=== PATIENT | female | born 1995 | race Hispanic/Latino ===

== ENCOUNTER 2018-09-22 17:45 | Day surgery (SDC) | payer OTHER ==
[2018-09-22 18:18] VITALS: BP 125/81; TEMP 98.2; BMI 26.2
[2018-09-22] MEDS ORDERED: Butorphanol Tartrate 1 MG/ML VIAL SLOW IVP PRN (18:47)
[2018-09-22] MEDS ORDERED: Butorphanol Tartrate 1 MG/ML VIAL ONE (18:48)
[2018-09-22] MEDS ORDERED: Lactated Ringer's 1,000 ML IV SCH ×2 (19:00)
[2018-09-22 19:53] LABS: Bilirubin Negative (Negative); Blood, Urine Negative (Negative); Clarity CLEAR (Clear); Glucose, Urine (Dipstick) Negative (Negative); Leukocyte Trace (Negative); Nitrite Negative (Negative); Protein, Urine (Dipstick) Negative (Neg-Trace); Specific Gravity, Urine 1.004 (1.002-1.036); Urobilinogen 0.2 mg/dL (0.2-1.0)
[2018-09-22 19:56] LABS: Bacteria/HPF None Seen HPF (None Seen); Hyaline Casts/LPF 0-3 HYALINE CAST LPF (0-3 Hyaline); RBC/HPF 0-3 HPF (0-3); Squamous Epithelial 0-3 HPF (0-3); WBC/HPF 0-3 HPF (0-3)
--- NOTE | 2018-09-22 21:03 | PDOC.EVN ---
Event Note - Event Note Event Note: 22 yo G3P@ @ 33.2wks here for contractions, now s/p 3L LR and now with resolution of contractions for 30 minutes. UA negative for infection. Will dc and recommend follow-up on Tuesday with Dr. Alvarado. Counseled on adequate fluid intake and return/labor precautions. Suspect dehydration as the etiology. -Nola Montes MD, PGY-2 Addendum - Attending - Attending Attestation Date/Time: 09/22/18 4512 I personally evaluated the patient and discussed the management with Dr. Montes. I agree with the Assessment and Plan documented above.
--- NOTE | 2018-09-23 00:24 | SS ---
DATE OF ADMISSION: 09/22/2018 DATE OF DISCHARGE: 09/22/2018 LABOR AND DELIVERY TRIAGE NOTE REGULAR PROVIDER: Lee Alvarado MD EVALUATING PHYSICIAN: Jf Dominguez MD CHIEF COMPLAINT: Uterine contractions over the last 2 days. HISTORY OF PRESENT ILLNESS: Ms. Arora is a 22-year-old white G3, P2 with an estimated date of confinement of 11/08/2018, who presents complaining of intermittent uterine contractions since last Tuesday. She states it became stronger today. She was seen in the emergency room of [facility] and transported herself here by private vehicle. She denies ruptured membranes or vaginal bleeding. Her care has been with Dr. Alvarado and she states it has been complicated by polyhydramnios. PAST OBSTETRICAL HISTORY: Two vaginal deliveries at 37 weeks, all reportedly uncomplicated. PAST MEDICAL HISTORY: None. PAST SURGICAL HISTORY: Tonsillectomy. CURRENT MEDICATIONS: vitamins. ALLERGIES: NO KNOWN ALLERGIES. SOCIAL HISTORY: Denies tobacco, alcohol, or drug use. FAMILY HISTORY: Unremarkable. REVIEW OF SYSTEMS: She denies nausea, vomiting, fever, chills, ruptured membranes, or heavy vaginal bleeding. PHYSICAL EXAMINATION: VITAL SIGNS: Stable. She is afebrile in triage. GENERAL: She is pleasant. She does report increased contractions. ABDOMEN: Soft, nontender, and gravid. PELVIC: Examination by the nurse in triage prior to my arrival is reported as 2 cm externally with a closed internal os. Presenting part is not palpable. heart rate tracing is stable. Uterine contractions are seen every 5 minutes and there is uterine irritability. ASSESSMENT: 1. 33 and 2/7th week intrauterine . 2. Rule out labor. 3. Rule out urinary tract infection. PLAN: CBC and urinalysis has been obtained. The patient will be given a fluid bolus and a single dose of Stadol in order to sedate. Should she continue to contract, consideration will be made of giving her steroids and possibly Procardia. Job ID: [id number] [facility]
== END 2018-09-22 21:15 | disposition home or self-care (01) ==
LOC: L&D/OP 17:45
PROVIDERS: ATTEND Obstetrics & Gynecology
DX: O47.03 False labor before 37 completed weeks of gestation, third trimester (principal); Z3A.33 33 weeks gestation of pregnancy
CPT/HCPCS: 81003; 81015; 96360; 96361; 96375; 99284; J0595

== ENCOUNTER 2018-10-14 13:08 | Inpatient (IN) | payer OTHER ==
[2018-10-14] MEDS ORDERED: Ibuprofen 800 MG TAB PO PRN (13:34)
[2018-10-14] MEDS ORDERED: HYDROcodone/Acetaminophen 5/325 mg Tablet PO PRN ×3 (13:34→15:57)
[2018-10-14] MEDS ORDERED: Lidocaine 1% (PF) 30 ML VIAL SC PRN (13:34)
[2018-10-14] MEDS ORDERED: Ondansetron PF 4 MG/2 ML Vial IVP PRN ×2 (13:34→15:57)
[2018-10-14] MEDS ORDERED: Lactated Ringer's 1,000 ML IV SCH ×2 (13:45)
[2018-10-14 13:54] LABS: Hemoglobin 11.2 g/dL (12.0-16.0); Mean Corpuscular HGB CONC 32.9 g/dL (32.0-36.0); Mean Corpuscular Hemoglobin 26.1 pg (27.0-31.0); Mean Corpuscular Volume 79.2 fL (78.0-98.0); Mean Platelet Volume 8.5 fL (7.4-10.4); Platelet Count 187 thou/uL (130-400); RBC Distribution Width 12.7 % (11.5-14.5); White Blood Cell (WBC) Count 7.6 thou/uL (4.8-10.8)
[2018-10-14] MEDS ORDERED: Lidocaine 1.5%/Epinephrine 1:200,000 5 ML AMPUL IJ ONE (14:02)
[2018-10-14 14:09] VITALS: BMI 27.3
[2018-10-14] MEDS: NS / Oxytocin 40 units/1000ml 1,000 ML IV PRN ×2 (14:20→15:56)
[2018-10-14 14:26] LABS: Hep B Surf Ag Non-Reactive S/CO (NonReactive); Syphilis Antibody Nonreactive (Nonreactive); Syphilis Antibody Index 0.03 S/CO (<1.00 Non-Reactive)
--- NOTE | 2018-10-14 14:38 | PDOC.LDHP ---
Labor and Delivery H&P Chief complaint: contractions HPI: 22 y/o at 36 w 2 d in spontaneious labor with ROM, hx of polyhydramnios this . GBS NEG. Current gestational age (weeks): 36 Grav: 3 Para: 2 Current complications: other (Polyhydramnios) Abnormal US findings: Yes (High ZOË) Current medications: pre-keegan vitamins Allergies/Adverse Reactions: Allergies Allergy/AdvReac Type Severity Reaction Status Date / Time No Known Allergies Allergy Verified 09/22/18 18:22 Social history: none - Physical Exam Vital signs reviewed and normal: yes General: NAD, breathing through contractions Heart: RRR Lungs: CTAB Abdomen: gravid Extremeties: no edema FHT: category 1 - Assessment L&D Assessment: premature rupture of membranes - Plan Plan: admit to L&D, labor augmentation if indicated
[2018-10-14] MEDS ORDERED: Milk Of Magnesia 30 ML UDCUP PO PRN (15:57)
[2018-10-14] MEDS ORDERED: Zolpidem Tartrate 5 MG TAB PO PRN (15:57)
[2018-10-14] MEDS ORDERED: Varicella virus, LIVE 0.5 ML VIAL SC ONE (15:57)
[2018-10-14] MEDS ORDERED: Preparation H Ointment 28 GM TUBE PR PRN (15:57)
[2018-10-14] MEDS ORDERED: Promethazine HCl 25 MG/ML VIAL IM PRN (15:57)
[2018-10-14] MEDS ORDERED: Adacel (T-DAP) 0.5 ML SYRINGE IM ONE (15:57)
[2018-10-14] MEDS ORDERED: Misoprostol 200 MCG TAB VAG PRN (15:57)
[2018-10-14] MEDS ORDERED: Lanolin Ointment 7 GM TUBE TOP PRN (15:57)
[2018-10-14] MEDS ORDERED: diphenhydrAMINE 25 MG CAP PO PRN (15:57)
[2018-10-14] MEDS ORDERED: Benzocaine/Menthol 20-0.5% 60 ML CAN TOP PRN (15:57)
[2018-10-14] MEDS ORDERED: Methylergonovine 0.2 MG/ML VIAL IM PRN (15:57)
[2018-10-14] MEDS ORDERED: NS / Oxytocin 40 units/1000ml 1,000 ML IV SCH (15:57)
[2018-10-14] MEDS ORDERED: Measles/Mumps/Rubella 10 MCG/0.5 ML VIAL SC ONE (15:57)
[2018-10-14] MEDS ORDERED: Bisacodyl 10 MG SUPP PR PRN (15:57)
[2018-10-14] MEDS: Ferrous Sulfate 325 MG TAB PO SCH (17:09)
[2018-10-14] MEDS: Docusate Calcium (SURFAK) 240 MG CAP PO SCH (20:01)
[2018-10-14] MEDS ORDERED: Ibuprofen 800 MG TAB PO SCH (22:00)
[2018-10-15] MEDS: Ibuprofen 800 MG TAB PO SCH ×4 (05:21→21:47)
[2018-10-15 07:09] LABS: Hemoglobin 10.4 g/dL (12.0-16.0); Mean Corpuscular HGB CONC 32.5 g/dL (32.0-36.0); Mean Corpuscular Hemoglobin 26.5 pg (27.0-31.0); Mean Corpuscular Volume 81.5 fL (78.0-98.0); Mean Platelet Volume 8.7 fL (7.4-10.4); Platelet Count 150 thou/uL (130-400); RBC Distribution Width 12.7 % (11.5-14.5); Red Blood Cell (RBC) Count 3.92 mill/uL (4.20-5.40); White Blood Cell (WBC) Count 8.9 thou/uL (4.8-10.8)
[2018-10-15] MEDS: Ferrous Sulfate 325 MG TAB PO SCH ×2 (07:57→15:18)
[2018-10-15] MEDS: Prenatal Vitamin 1 TAB PO SCH (09:45)
[2018-10-15] MEDS: Docusate Calcium (SURFAK) 240 MG CAP PO SCH ×2 (09:45→21:47)
[2018-10-16] MEDS: Ibuprofen 800 MG TAB PO SCH (06:21)
[2018-10-16 07:53] VITALS: BP 108/65; TEMP 97.9
[2018-10-16] MEDS: Ferrous Sulfate 325 MG TAB PO SCH (08:11)
[2018-10-16] MEDS: Prenatal Vitamin 1 TAB PO SCH (08:44)
[2018-10-16] MEDS: Docusate Calcium (SURFAK) 240 MG CAP PO SCH (08:44)
--- NOTE | 2018-10-18 05:58 | DN ---
DATE OF PROCEDURE: 10/14/2018 PREOPERATIVE DIAGNOSES: premature rupture of membranes with labor at 36 weeks and 2 days. The patient made spontaneous rapid progress of cervical dilatation. POSTOPERATIVE DIAGNOSES: premature rupture of membranes with labor at 36 weeks and 2 days. The patient made spontaneous rapid progress of cervical dilatation. PROCEDURE PERFORMED: Spontaneous vaginal delivery at 36 weeks and 2 days over intact perineum. FINDINGS: Viable male infant, weighing 2788 g or 6 pounds 10 ounces, Apgars 9 and 9. QUANTITATIVE BLOOD LOSS: 262 g. COMPLICATIONS: None. PROCEDURE IN DETAIL: The patient presented to [facility] where she was admitted to the labor and delivery service. The patient underwent a normal and uneventful labor with normal cervical dilatation until she was found to be completely dilated. She was then allowed to push and was able to bring the baby down and delivered the baby in a vertex presentation without difficulties. Once the head delivered in occiput anterior position, the shoulders followed spontaneously along with the rest of the baby's body. Once out the baby's mouth and nose were bulb suctioned. The cord was clamped and cut and baby was handed to waiting attendants. Cord blood was collected. Gentle fundal massage was performed and the placenta delivered intact without problems. Hemostasis was assured. Quantitative blood loss was calculated. Inspection of the cervix, vaginal vault, and perineum did not reveal any lacerations needing suturing. Once again, hemostasis was within normal limits and the patient was allowed to recover in the labor and delivery room. Baby went to nursery. Job ID: [id number]
== END 2018-10-16 14:45 | disposition home or self-care (01) | DRG 807 ==
LOC: SDC 13:08 → L&D 14:11 → 3SW 16:59
PROVIDERS: ADMIT Obstetrics & Gynecology; ATTEND Obstetrics & Gynecology
PROC: 10E0XZZ Delivery of Products of Conception, External Approach (ICD-10-PCS; principal; 2018-10-14)
DX: O60.14X0 Preterm labor third trimester with preterm delivery third trimester, not applicable or unspecified (principal); Z37.0 Single live birth; O40.3XX0 Polyhydramnios, third trimester, not applicable or unspecified; Z3A.36 36 weeks gestation of pregnancy
CPT/HCPCS: 36415; 85027; 86780; 86850; 86900; 86901; 87340; 90715; 99285; J2001; J3490